=== PATIENT | female | born 1985 | race Caucasian/White ===

== ENCOUNTER 2017-11-29 16:33 | Inpatient (IN) | payer BC ==
[~2017-11-29] VITALS: Ht 170.2 cm; Wt 90.9 kg
[2017-12-14] VITALS (15 sets, daily range): BP systolic 104–143; BP diastolic 66–97; PULSE 64–96; TEMP 97.4–98.9
[2017-12-14 05:46] LABS: BASO # 0.1 (0.0-0.2); BASO % 0.6 % (0.0-2.0); EOS # 0.1 (0.0-0.7); EOS % 0.8 % (0-4.0); GRAN # 6.6 (1.4-6.5); GRAN % 64.6 % (42.2-75.2); HEMATOCRIT 38.7 % (37.0-47.0); HEMOGLOBIN 12.6 g/dl (12.5-16.0); LYMPH # 2.8 (1.2-3.4); LYMPH % 27.4 % (20.0-51.0); MEAN CELL VOLUME 85 fl (80.0-100.0); MEAN CORPUSCULAR HEMOGLOBIN 28 pg (27.0-31.0); MEAN CORPUSCULAR HGB CONC 33 g/dl (33.0-37.0); MEAN PLATELET VOLUME 11.3 fl (7.4-10.4); MONO # 0.6 (0.1-0.6); MONO % 5.8 % (1.7-9.3); PLATELET COUNT 248 K/mm3 (130-400); RED BLOOD COUNT 4.55 M/mm3 (4.10-5.30); REDCELL DISTRIBUTION WIDTH-CV 14.4 % (11.5-14.5)
[2017-12-14] MEDS ORDERED: MOTRIN 800800 MG/TAB PO (17:11)
[2017-12-14] MEDS ORDERED: PERCOCET 325 MG1 TA2 PO (17:11)
[2017-12-15] VITALS: BP 112/73; PULSE 80; TEMP 97.9
[2017-12-15 07:15] VITALS: BP 94/59; PULSE 79; TEMP 98.2
[2017-12-15 15:30] VITALS: BP 119/70; PULSE 90; TEMP 98.1
[2017-12-15 19:15] VITALS: BP 133/74; PULSE 73; TEMP 97.7
[2017-12-16 07:20] VITALS: BP 120/77; PULSE 84; TEMP 98.7
== END 2017-12-16 10:05 | disposition home or self-care (01) | DRG 775 ==
LOC: EDSTATUS 12-03 06:40 → LDRO 12-03 16:32 → LDR 12-14 04:39 → OB 12-14 04:39 → LDR 12-14 05:08 → OB 12-14 08:45
PROVIDERS: Obstetrics & Gynecology
PROC: 10E0XZZ Delivery of Products of Conception, External Approach (ICD-10-PCS; principal; 2017-12-14)
PROC: 0KQM0ZZ Repair Perineum Muscle, Open Approach (ICD-10-PCS; 2017-12-14)
DX: O62.3 Precipitate labor (principal); O48.0 Post-term pregnancy; O99.284 Endocrine, nutritional and metabolic diseases complicating childbirth; E03.9 Hypothyroidism, unspecified; O77.0 Labor and delivery complicated by meconium in amniotic fluid; O99.824 Streptococcus B carrier state complicating childbirth; O70.1 Second degree perineal laceration during delivery; Z3A.41 41 weeks gestation of pregnancy; Z37.0 Single live birth
CPT/HCPCS: J2540; J2590; J2795; J7120

== ENCOUNTER → 2018-01-02 | Outpatient (CLI) | payer BC ==
[~2018-01-02] MED LIST: MOTRIN 800800 MG/TAB PO; PERCOCET 325 MG1 TA2 PO
== END ==
LOC: LAC 09:52
DX: Z39.1 Encounter for care and examination of lactating mother (principal); Z71.89 Other specified counseling

== ENCOUNTER → 2018-01-09 | Outpatient (CLI) | payer BC | LOC: LAC 10:31 | DX: Z39.1 Encounter for care and examination of lactating mother (principal); Z71.89 Other specified counseling ==